=== PATIENT | female | born 1970 | race Caucasian/White ===

== ENCOUNTER 2016-09-05 16:08 | Emergency (ER) | payer OTHER ==
[~2016-09-05] VITALS: Ht 160 cm; Wt 95.3 kg
--- NOTE | ~2016-09-05 | EKG ---
[address] [address] [place] [address] ELECTROCARDIOGRAM REPORT Name: SEBAS MURPHY [facility] [id number] Admission: 09/05/16 Attend Phys: Discharge: 09/05/16 Date of : 74 Report #: [id number] THIS REPORT FOR: //name// [facility] ED Test Date: 2016-09-05 Test Time: 16:14:39 Pat Name: SEBAS MURPHY Department: Room: Gender: F [employer]: MZOOK : 1970 Requested By: Prudencio Fletcher Order Number: [id number] MD: Jeremy Gaytan Measurements Intervals [place] Rate: 80 P: 49 AL: 165 QRS: -6 QRSD: 96 T: 21 QT: 387 QTc: 447 Interpretive Statements Sinus rhythm Borderline T abnormalities, anterior leads No previous ECG available for comparison Electronically Signed On 09-06-2016 8:58:48 [employer] by Jeremy Gaytan [email or web address] <ELECTRONICALLY SIGNED> By: Jeremy Gaytan MD, [facility] 09/06/16 0858 1614 1614 Jeremy Gaytan MD, FACC /EPI
[2016-09-05] MEDS ORDERED: LIALDA1.2 GM PO (16:11)
[2016-09-05] MEDS ORDERED: LISINOPRIL10 MG PO (16:11)
[2016-09-05] MEDS ORDERED: PRAVACHOL20 MG PO (16:12)
[2016-09-05 17:18] LABS: ABSOLUTE NEUTROPHILS 7.2 thou/uL (1.4-8.2); BASOPHILS 0.6 % (0.0-2.0); EOSINOPHILS 1.9 % (0.0-3.0); HEMATOCRIT 41.8 % (37.0-47.0); HEMOGLOBIN 14.2 gm/dL (12.0-15.0); LYMPHOCYTES 18.2 % (24.0-44.0); MCHC 33.9 % (28.0-37.0); MCV 82.4 fL (80.0-100.0); PLATELET COUNT 238 thou/uL (150-400); POLYS 74.3 % (36.0-66.0); RBC 5.07 mil/uL (4.20-5.00); WBC 9.7 thou/uL (4.0-11.0)
[2016-09-05 17:24] LABS: MANUAL DIFF NO
[2016-09-05 17:28] LABS: ANION GAP 14 mmol/L (7-16); BUN 15 mg/dL (7-18); CALCIUM 8.1 mg/dL (8.5-10.1); CHLORIDE 103 mmol/L (98-107); CO2 22 mmol/L (21-32); CREATININE 1.1 mg/dL (0.6-1.3); GLUCOSE 95 mg/dL (70-99); POTASSIUM 3.8 mmol/L (3.5-5.1); SODIUM 139 mmol/L (136-145)
[2016-09-05 17:30] LABS: URINE BILIRUBIN NEGATIVE (Negative); URINE BLOOD 3+ (Negative); URINE COLOR YELLOW; URINE GLUCOSE-RANDOM* NEGATIVE (Negative); URINE KETONES NEGATIVE (Negative); URINE NITRITE NEGATIVE (Negative); URINE PROTEIN (DIPSTICK) NEGATIVE (Negative); URINE SPECIFIC GRAVITY <= 1.005 (1.003-1.035); URINE UROBILINOGEN 0.2 E.U./dl (0.2-1.0)
[2016-09-05 17:37] LABS: ALBUMIN 3.7 g/dL (3.4-5.0); ALKALINE PHOSPHATASE 98 U/L (46-116); SGOT 19 U/L (15-37); SGPT 27 U/L (30-65); TOTAL BILIRUBIN 0.5 mg/dL (<0.1-1.0); TOTAL PROTEIN 7.4 g/dL (6.4-8.2); TROPONIN-I < 0.04 ng/mL (<0.04-0.07)
[2016-09-05 17:41] LABS: BACTERIA 1-9 Few /HPF (None Seen); CASTS None Seen /LPF (None Seen); CRYSTALS None Seen /LPF (None Seen); SQUAMOUS 0-3 Few /LPF (0-3); URINE RBC 0-2 Rare /HPF (0-2); URINE WBC None Seen /HPF (0-5)
[2016-09-05 19:23] VITALS: BP 108/55
== END 2016-09-05 19:26 | disposition home or self-care (01) ==
LOC: ER 16:08
PROVIDERS: Physician Assistant
DX: R07.9 Chest pain, unspecified (principal); R19.7 Diarrhea, unspecified; Z71.6 Tobacco abuse counseling; F17.210 Nicotine dependence, cigarettes, uncomplicated; F10.99 Alcohol use, unspecified with unspecified alcohol-induced disorder